=== PATIENT | male | born 1990 | race African-American/Black ===

== ENCOUNTER 2019-04-07 08:49 | Inpatient (IN) | payer MEDICAID ==
[~2019-04-07] VITALS: Ht 172.7 cm; Wt 92.1 kg
[~2019-04-07 08:49] MED LIST: SERT50TA12 PO
[2019-04-07 09:26] LABS: EOSINOPHILS % (AUTO) 6.4 % (1.0-6.0); HEMATOCRIT 44.4 % (41-53); HEMOGLOBIN 14.6 g/dL (13.5-17.5); LYMPHOCYTES # (AUTO) 2.2 K/uL (1.0-4.8); LYMPHOCYTES % (AUTO) 26.9 % (22.0-44.0); MEAN CORPUSCULAR HEMOGLOBIN 26.8 pg (26.0-34.0); MEAN CORPUSCULAR HGB CONC 32.9 G/dL (31.0-37.0); MEAN CORPUSCULAR VOLUME 81 fL (80-100); MONOCYTES # (AUTO) 0.6 K/uL (0.1-1.0); MONOCYTES % (AUTO) 6.7 % (2.0-9.0); NEUTROPHILS # (AUTO) 4.9 K/uL (1.8-7.7); PLATELET COUNT (AUTO) 261 K/uL (150-450); RED BLOOD CELL COUNT(AUTO) 5.45 MIL/uL (4.50-5.90)
[2019-04-07 09:38] LABS: ANION GAP 5 mmol/L (8-16); CARBON DIOXIDE 32 mmol/L (22-29); CHLORIDE 103 mmol/L (98-107); GLOMERULAR FILTR. RATE CALC > 60 mL/min (>60); GLUCOSE,RANDOM 93 mg/dL (70-110); POTASSIUM 3.8 mmol/L (3.5-5.1); SODIUM SERUM 140 mmol/L (136-145); UREA NITROGEN, BLOOD 15 mg/dL (7-18)
[2019-04-07 09:42] LABS: ALANINE AMINOTRANSFERASE 28 U/L (12-78); ALBUMIN 3.9 g/dL (3.4-5.0); ALKALINE PHOSPHATASE 68 U/L (46-116); ASPARTATE AMINOTRANSFERASE 29 U/L (15-37); BILIRUBIN,TOTAL 1.4 mg/dL (0.1-1.0); TOTAL PROTEIN, SERUM 8.2 g/dL (6.4-8.2)
[2019-04-07] MEDS ORDERED: HALOPERIDOL 5 MG TABLET PO PRN (13:30)
[2019-04-07 14:03] LABS: AMPHET/METH SCREEN,URINE POSITIVE (NEGATIVE); BARBITURATE SCREEN, URINE NEGATIVE (NEGATIVE); BENZODIAZEPINES SCREEN,URINE NEGATIVE (NEGATIVE); CANNABINOID SCREEN,URINE NEGATIVE (NEGATIVE); COCAINE SCREEN,URINE NEGATIVE (NEGATIVE); METHADONE SCREEN, URINE NEGATIVE (NEGATIVE); OPIATE SCREEN,URINE NEGATIVE (NEGATIVE)
[2019-04-07 14:33] LABS: PHENCYCLIDINE SCREEN,URINE NEGATIVE (NEGATIVE)
[2019-04-07 16:17] LABS: GLUCOMETER DEV NAME(LOC) BV2S.; GLUCOSE,POINT OF CARE 77 MG/DL (70-110)
[2019-04-07 16:22] VITALS: BP 132/82
[2019-04-07] MEDS ORDERED: PETROLATUM,WHITE 28 GM JELLY TP PRN (17:15)
[2019-04-07] MEDS ORDERED: IBUPROFEN 400 MG TABLET PO PRN (17:15)
[2019-04-07] MEDS ORDERED: ALBUTEROL SULFATE HFA 90 MCG/PUFF 8 GM INHALER IH PRN (17:15)
[2019-04-07] MEDS ORDERED: GuaiFENesin/D-METHORPHAN [SUGAR-FREE] 200-20MG/10 ML SYRUP UDCUP PO PRN (17:15)
[2019-04-07] MEDS ORDERED: CloNIDine HCL 0.1 MG TABLET PO PRN (17:15)
[2019-04-07] MEDS ORDERED: NICOTINE 14 MG/24 HOUR PATCH TD PRN (17:15)
[2019-04-07] MEDS ORDERED: DOCUSATE SODIUM 100 MG CAPSULE PO PRN (17:15)
[2019-04-07] MEDS ORDERED: ACETAMINOPHEN 325 MG TABLET PO PRN (17:15)
[2019-04-07] MEDS ORDERED: LOPERAMIDE HCL 2 MG CAPSULE PO PRN (17:15)
[2019-04-07] MEDS ORDERED: MAGNESIUM HYDROXIDE SUSPENSION 30 ML UDCUP PO PRN (17:15)
[2019-04-07] MEDS ORDERED: ONDANSETRON HCL 4 MG TABLET PO PRN (17:15)
[2019-04-07] MEDS ORDERED: MAG HYDROX/AL HYDROX/SIMETH ES 30 ML SUSPENSION UDCUP PO PRN (17:15)
[2019-04-07] MEDS ORDERED: INFLUENZA VIRUS VACCINE QVS 2019-20 (3YR+)/PF 60 MCG/0.5 ML SYRINGE IM ONE (17:30)
[2019-04-08 05:15] VITALS: BP 102/66
[2019-04-08 08:09] VITALS: BP 114/62
[2019-04-08 08:25] LABS: CHOL/HDL RATIO 3.3 (4.2-7.3)
[2019-04-08] MEDS: SERTRALINE HCL 50 MG TABLET PO SCH (13:27)
[2019-04-08 16:15] VITALS: BP 134/67
[2019-04-08] MEDS: QUEtiapine FUMARATE 100 MG TABLET PO SCH (20:42)
[2019-04-09 00:38] VITALS: BP 103/64
[2019-04-09 08:10] VITALS: BP 109/72
[2019-04-09] MEDS: SERTRALINE HCL 50 MG TABLET PO SCH (08:16)
[2019-04-09 17:08] VITALS: BP 119/76
[2019-04-09] MEDS: QUEtiapine FUMARATE 100 MG TABLET PO SCH (21:59)
[2019-04-10 00:39] VITALS: BP 110/65
[2019-04-10 08:14] VITALS: BP 106/62
[2019-04-10] MEDS: SERTRALINE HCL 50 MG TABLET PO SCH (08:14)
[2019-04-10] MEDS ORDERED: SERTRALINE HCL 100 MG TABLET PO SCH (09:00)
[2019-04-10] MEDS ORDERED: SERTRALINE HCL 50 MG TABLET PO ONE (09:15)
[2019-04-10 16:20] VITALS: BP 148/85
[2019-04-10] MEDS: QUEtiapine FUMARATE 100 MG TABLET PO SCH (20:06)
[2019-04-11 00:14] VITALS: BP 110/69
[2019-04-11 08:09] VITALS: BP 140/80
[2019-04-11] MEDS: SERTRALINE HCL 100 MG TABLET PO SCH (08:34)
[2019-04-11 16:03] VITALS: BP 119/75
[2019-04-11] MEDS: QUEtiapine FUMARATE 100 MG TABLET PO SCH (20:09)
[2019-04-12 01:00] VITALS: BP 108/82
[2019-04-12 08:17] VITALS: BP 123/85
[2019-04-12] MEDS: SERTRALINE HCL 100 MG TABLET PO SCH (08:55)
[2019-04-12 16:05] VITALS: BP 127/74
[2019-04-12] MEDS: QUEtiapine FUMARATE 100 MG TABLET PO SCH (20:02)
[2019-04-13 00:10] VITALS: BP 106/62
[2019-04-13 08:14] VITALS: BP 115/65
[2019-04-13] MEDS: SERTRALINE HCL 100 MG TABLET PO SCH (08:15)
[2019-04-13 16:04] VITALS: BP 130/79
[2019-04-13] MEDS: QUEtiapine FUMARATE 100 MG TABLET PO SCH (20:26)
[2019-04-14 00:43] VITALS: BP 115/69
[2019-04-14 08:18] VITALS: BP 121/70
[2019-04-14] MEDS: SERTRALINE HCL 100 MG TABLET PO SCH (08:46)
[2019-04-14 16:05] VITALS: BP 111/63
[2019-04-14] MEDS: QUEtiapine FUMARATE 100 MG TABLET PO SCH (20:12)
[2019-04-15 00:15] VITALS: BP 106/63
[2019-04-15] MEDS: SERTRALINE HCL 100 MG TABLET PO SCH (08:04)
[2019-04-15 08:09] VITALS: BP 115/75
[2019-04-15 17:10] VITALS: BP 111/78
[2019-04-15] MEDS: LORazepam 2 MG TABLET PO PRN (18:51)
[2019-04-15] MEDS: ZOLPIDEM TARTRATE 10 MG TABLET PO PRN (20:45)
[2019-04-15] MEDS: QUEtiapine FUMARATE 100 MG TABLET PO SCH (20:45)
[2019-04-16 06:37] VITALS: BP 118/76
[2019-04-16] MEDS: SERTRALINE HCL 100 MG TABLET PO SCH (08:18)
[2019-04-16 08:24] VITALS: BP 103/64
[2019-04-16] MEDS: LORazepam 2 MG TABLET PO PRN (16:12)
[2019-04-16 16:17] VITALS: BP 139/80
[2019-04-16] MEDS: QUEtiapine FUMARATE 100 MG TABLET PO SCH (20:42)
[2019-04-16] MEDS: ZOLPIDEM TARTRATE 10 MG TABLET PO PRN (20:42)
[2019-04-17 03:58] VITALS: BP 120/76
[2019-04-17 08:00] VITALS: BP 113/68
[2019-04-17] MEDS: SERTRALINE HCL 100 MG TABLET PO SCH (08:02)
[2019-04-17 16:05] VITALS: BP 138/78
[2019-04-17] MEDS: QUEtiapine FUMARATE 100 MG TABLET PO SCH (20:21)
[2019-04-18 08:06] VITALS: BP 127/76
[2019-04-18] MEDS: SERTRALINE HCL 100 MG TABLET PO SCH (08:10)
[2019-04-18 16:03] VITALS: BP 138/68
[2019-04-18] MEDS: QUEtiapine FUMARATE 100 MG TABLET PO SCH (20:23)
[2019-04-19 05:06] VITALS: BP 126/72
[2019-04-19 08:26] VITALS: BP 124/75
[2019-04-19] MEDS: SERTRALINE HCL 100 MG TABLET PO SCH (09:01)
[2019-04-19 16:00] VITALS: BP 128/103
[2019-04-19] MEDS: QUEtiapine FUMARATE 100 MG TABLET PO SCH (20:16)
[2019-04-20 05:23] VITALS: BP 114/78
[2019-04-20 08:00] VITALS: BP 139/80
[2019-04-20] MEDS: SERTRALINE HCL 100 MG TABLET PO SCH (08:48)
[2019-04-20] MEDS ORDERED: SERT100T12 PO (10:03)
[2019-04-20] MEDS ORDERED: QUET100T33 PO (10:03)
== END 2019-04-20 13:15 | disposition home or self-care (01) | DRG 753 ==
LOC: EMS 08:50 → B2S 15:19 → B3A 04-15 20:51
DX: F31.4 Bipolar disorder, current episode depressed, severe, without psychotic features (principal); I95.9 Hypotension, unspecified; R45.851 Suicidal ideations; R17 Unspecified jaundice; F15.90 Other stimulant use, unspecified, uncomplicated; Z59.0 Homelessness; Z91.5 Personal history of self-harm; Z71.51 Drug abuse counseling and surveillance of drug abuser
CPT/HCPCS: 90686; G0480

== ENCOUNTER 2020-12-05 14:59 | Emergency (ER) | payer MEDICAID, OTHER ==
[~2020-12-05] VITALS: Ht 177.8 cm; Wt 92.4 kg
[~2020-12-05 14:59] MED LIST changes: +QUET100T34 PO; +SERT-158 PO; +SERT-440 PO; -SERT50TA12 PO
[2020-12-05 15:19] LABS: BASOPHILS % (AUTO) 1.1 % (0.0-2.0); HEMOGLOBIN 14.7 g/dL (13.5-17.5); LYMPHOCYTES % (AUTO) 32.6 % (22.0-44.0); MEAN CORPUSCULAR HEMOGLOBIN 25.6 pg (26.0-34.0); MEAN CORPUSCULAR HGB CONC 31.9 G/dL (31.0-37.0); MEAN CORPUSCULAR VOLUME 80 fL (80-100); MONOCYTES # (AUTO) 0.8 K/uL (0.1-1.0); NEUTROPHILS % (AUTO) 56.3 % (40.0-70.0); PLATELET COUNT (AUTO) 381 K/uL (150-450); RED BLOOD CELL COUNT(AUTO) 5.74 MIL/uL (4.50-5.90); RED CELL DISTRIBUTION WIDTH 14.7 % (11.5-14.5)
[2020-12-05 15:20] LABS: COVID AG,FIA SOURCE NASOPHARYNGEAL
[2020-12-05 15:34] LABS: ANION GAP 9 mmol/L (8-16); CALCIUM, TOTAL 9.3 mg/dL (8.8-10.5); CARBON DIOXIDE 31 mmol/L (22-29); CHLORIDE 104 mmol/L (98-107); CREATININE 1.28 mg/dL (0.60-1.30); GLOMERULAR FILTR. RATE CALC > 60 mL/min (>60); GLUCOSE,RANDOM 117 mg/dL (70-110); POTASSIUM 3.6 mmol/L (3.5-5.1); SODIUM SERUM 144 mmol/L (136-145); UREA NITROGEN, BLOOD 11 mg/dL (7-18)
[2020-12-05 15:38] LABS: SALICYLATE < 2.8 mg/dL (2.8-20.0)
[2020-12-05 15:46] LABS: ALANINE AMINOTRANSFERASE 26 U/L (12-78); ALBUMIN 3.9 g/dL (3.4-5.0); ALKALINE PHOSPHATASE 89 U/L (46-116); ASPARTATE AMINOTRANSFERASE 21 U/L (15-37); BILIRUBIN,TOTAL 0.6 mg/dL (0.1-1.0); TOTAL PROTEIN, SERUM 8.6 g/dL (6.4-8.2)
[2020-12-05 15:47] LABS: ACETAMINOPHEN < 2 mcg/mL (10-30)
[2020-12-05 18:30] VITALS: BP 138/93
== END 2020-12-05 19:55 | disposition home or self-care (01) ==
LOC: EMS 14:59
DX: T40.414A Poisoning by fentanyl or fentanyl analogs, undetermined, initial encounter (principal); F32.9 Major depressive disorder, single episode, unspecified; Z20.822 Contact with and (suspected) exposure to COVID-19; Z79.899 Other long term (current) drug therapy; Y92.89 Other specified places as the place of occurrence of the external cause
CPT/HCPCS: 36415; 71045; 80053; 85025; 87426; 93005; 99285; G0480; G0481